=== PATIENT | female | born 1995 | race Two or more races ===

== ENCOUNTER 2017-08-11 21:48 | Emergency (ER) | payer MEDICAID ==
[~2017-08-11] VITALS: Ht 160 cm; Wt 47.0 kg
[2017-08-11 22:52] LABS: CLARITY URINE TURBID (CLEAR); COLOR URINE YELLOW (YELLOW); KETONES URINE 2+ (NEGATIVE); LEUKOCYTE ESTERASE URINE 2+ (NEGATIVE); NITRITE URINE NEGATIVE (NEGATIVE); OCCULT BLOOD URINE NEGATIVE (NEGATIVE); PH URINE 5.5 (4.5-8.0); PROTEIN URINE NEGATIVE (NEGATIVE); SPECIFIC GRAVITY URINE 1.032 (1.005-1.030)
[2017-08-12] MEDS ORDERED: ACETAMINOPHEN 325MG TABLET PO ONE (02:00)
[2017-08-12] MEDS ORDERED: ONDANSETRON 4MG ODT PO ONE (02:00)
[2017-08-12 02:15] LABS: BASOPHILS % 0.3 % (0.0-2.0); EOSINOPHILS % 0.2 % (0.0-5.0); HEMOGLOBIN. 12.8 g/dL (12.0-16.0); LYMPHOCYTES % 29.4 % (20.0-50.0); MEAN CORPUSCULAR HEMOGLOBIN 30.6 pg (28.0-32.0); MEAN CORPUSCULAR VOLUME 90.7 fL (81.0-99.0); MONOCYTES % 6.8 % (2.0-8.0); NEUTROPHILS % 63.3 % (40.0-76.0); PLATELET 222 x1000/uL (130-400); RED BLOOD CELL COUNT 4.19 mill/uL (4.2-5.4); RED CELL DISTRIBUTION WIDTH 12.8 % (11.6-14.6)
[2017-08-12 02:19] LABS: CHLORIDE 104 mEq/L (98-107)
[2017-08-12 02:24] LABS: INR 1.1; PROTHROMBIN TIME 11.6 sec (9.4-11.6)
[2017-08-12 02:29] LABS: HCG SCREEN NEGATIVE
[2017-08-12] MEDS ORDERED: NITROFURANTOIN 100MG M/M CAPSULE PO ONE (02:45)
[2017-08-12 03:24] VITALS: BP 101/38
== END 2017-08-12 04:22 | disposition home or self-care (01) ==
LOC: ER 21:48
DX: N83.202 Unspecified ovarian cyst, left side (principal); N39.0 Urinary tract infection, site not specified; F12.10 Cannabis abuse, uncomplicated; Z88.1 Allergy status to other antibiotic agents
CPT/HCPCS: 36415; 76830; 76856; 80053; 81003; 83690; 84703; 85025; 85610; 99285; Q0162; Z7610

== ENCOUNTER 2017-10-09 23:09 | Emergency (ER) | payer MEDICAID ==
[~2017-10-09] VITALS: Ht 157.5 cm; Wt 51.0 kg
[2017-10-10 01:34] LABS: CLARITY URINE CLEAR (CLEAR); COLOR URINE YELLOW (YELLOW); KETONES URINE TRACE (NEGATIVE); LEUKOCYTE ESTERASE URINE NEGATIVE (NEGATIVE); NITRITE URINE NEGATIVE (NEGATIVE); OCCULT BLOOD URINE NEGATIVE (NEGATIVE); PH URINE 6.5 (4.5-8.0); PROTEIN URINE NEGATIVE (NEGATIVE); SPECIFIC GRAVITY URINE 1.016 (1.005-1.030)
[2017-10-10] MEDS ORDERED: IBUPROFEN 800MG TABLET PO ONE (04:45)
[2017-10-10] MEDS ORDERED: ACETAMINOPHEN WITH CODEINE 300/30MG TABLET PO ONE (05:15)
[2017-10-10 05:55] VITALS: BP 112/62
== END 2017-10-10 06:15 | disposition home or self-care (01) ==
LOC: ER 23:09
DX: N76.0 Acute vaginitis (principal); J45.909 Unspecified asthma, uncomplicated; Z88.3 Allergy status to other anti-infective agents
CPT/HCPCS: 81003; 81025; 99283; Z7610

== ENCOUNTER 2017-11-15 21:42 | Emergency (ER) | payer MEDICAID ==
[~2017-11-15] VITALS: Ht 160 cm; Wt 47.0 kg
[2017-11-15 22:18] VITALS: BP 100/61
== END 2017-11-16 00:27 | disposition left against medical advice (07) ==
LOC: ER 21:42
DX: Z53.21 Procedure and treatment not carried out due to patient leaving prior to being seen by health care provider (principal)

== ENCOUNTER 2017-11-16 15:00 | Emergency (ER) | payer MEDICAID ==
[~2017-11-16] VITALS: Ht 160 cm; Wt 47.0 kg
[2017-11-16 17:20] LABS: CLARITY URINE CLEAR (CLEAR); COLOR URINE YELLOW (YELLOW); KETONES URINE TRACE (NEGATIVE); LEUKOCYTE ESTERASE URINE NEGATIVE (NEGATIVE); NITRITE URINE NEGATIVE (NEGATIVE); OCCULT BLOOD URINE NEGATIVE (NEGATIVE); PROTEIN URINE NEGATIVE (NEGATIVE); SPECIFIC GRAVITY URINE 1.019 (1.005-1.030); UROBILINOGEN URINE 0.2 E.U./dL (0.2-1.0)
[2017-11-16] MEDS ORDERED: IBUPROFEN 600MG TABLET PO ONE (20:00)
[2017-11-16 23:28] VITALS: BP 100/60
== END 2017-11-16 23:30 | disposition home or self-care (01) ==
LOC: ER 15:00
DX: R10.2 Pelvic and perineal pain (principal); R03.0 Elevated blood-pressure reading, without diagnosis of hypertension; N83.202 Unspecified ovarian cyst, left side
CPT/HCPCS: 76830; 76856; 81003; 81025; 99285; Z7610; C1893

== ENCOUNTER 2018-06-02 13:25 | Observation (INO) | payer MEDICAID ==
[~2018-06-02] VITALS: Ht 157.5 cm; Wt 52.2 kg
[2018-06-02 14:33] LABS: CLARITY URINE CLEAR (CLEAR); COLOR URINE YELLOW (YELLOW); KETONES URINE NEGATIVE (NEGATIVE); LEUKOCYTE ESTERASE URINE NEGATIVE (NEGATIVE); NITRITE URINE NEGATIVE (NEGATIVE); OCCULT BLOOD URINE NEGATIVE (NEGATIVE); PH URINE 7.5 (4.5-8.0); PROTEIN URINE NEGATIVE (NEGATIVE); SPECIFIC GRAVITY URINE 1.016 (1.005-1.030); UROBILINOGEN URINE 0.2 E.U./dL (0.2-1.0)
[2018-06-02] MEDS: LACTATED RINGERS 1,000 ML IV SCH (14:35)
== END 2018-06-02 15:35 | disposition home or self-care (01) ==
LOC: 8 EST LDRP 13:25
PROVIDERS: ADMIT Specialist; ATTEND Specialist
DX: O26.892 Other specified pregnancy related conditions, second trimester (principal); R10.30 Lower abdominal pain, unspecified; Z3A.24 24 weeks gestation of pregnancy
CPT/HCPCS: 81003; 99281; G0378; 96360

== ENCOUNTER 2018-09-13 14:05 | Observation (INO) | payer MEDICAID ==
[~2018-09-13] VITALS: Ht 162.6 cm; Wt 59.0 kg
[2018-09-13 16:10] LABS: CLARITY URINE CLEAR (CLEAR); COLOR URINE YELLOW (YELLOW); KETONES URINE NEGATIVE (NEGATIVE); LEUKOCYTE ESTERASE URINE NEGATIVE (NEGATIVE); NITRITE URINE NEGATIVE (NEGATIVE); OCCULT BLOOD URINE NEGATIVE (NEGATIVE); PH URINE 6.5 (4.5-8.0); PROTEIN URINE NEGATIVE (NEGATIVE); SPECIFIC GRAVITY URINE 1.009 (1.005-1.030); UROBILINOGEN URINE 0.2 E.U./dL (0.2-1.0)
== END 2018-09-13 16:50 | disposition home or self-care (01) ==
LOC: 8 EST LDRP 14:05
PROVIDERS: ADMIT Obstetrics & Gynecology; ATTEND Obstetrics & Gynecology
DX: O36.8130 Decreased fetal movements, third trimester, not applicable or unspecified (principal); O26.893 Other specified pregnancy related conditions, third trimester; R10.9 Unspecified abdominal pain; N89.8 Other specified noninflammatory disorders of vagina; O99.89 Other specified diseases and conditions complicating pregnancy, childbirth and the puerperium; M54.9 Dorsalgia, unspecified; Z3A.38 38 weeks gestation of pregnancy
CPT/HCPCS: 76815; 76818; 81003; G0378

== ENCOUNTER 2018-09-15 05:02 | Inpatient (IN) | payer MEDICAID ==
[~2018-09-15] VITALS: Ht 162.6 cm; Wt 62.6 kg
[2018-09-15] MEDS ORDERED: FERR-71 MT (05:52)
[2018-09-15] MEDS ORDERED: PREN1TAB78 MT (05:52)
[2018-09-15] MEDS ORDERED: DEXT 5%/LACTATED RINGERS 1,000 ML IV SCH (07:00)
[2018-09-15] MEDS ORDERED: DEXT 5%/LR + PITOCIN 20UNITS/L 1,000 ML IV SCH ×2 (07:10→12:27)
[2018-09-15] MEDS ORDERED: METHYLERGONOVINE MALEATE 0.2 MG/ML IM PRN (07:15)
[2018-09-15] MEDS ORDERED: NALOXONE HCL 0.4 MG/ML 1ML VIAL IM PRN (07:15)
[2018-09-15] MEDS ORDERED: LIDOCAINE HCL 1% 20ML VIAL (Pyxis) INJ INFIL SCH (07:15)
[2018-09-15 07:23] LABS: INR 0.9; PARTIAL THROMBOPLASTIN TIME 27.6 sec (23.4-31.0)
[2018-09-15 07:24] LABS: BASOPHILS % 0.2 % (0.0-2.0); EOSINOPHILS % 0.3 % (0.0-5.0); HEMATOCRIT. 33.5 % (36.0-48.0); HEMOGLOBIN. 11.5 g/dL (12.0-16.0); LYMPHOCYTES % 15.5 % (20.0-50.0); MEAN CORPUSCULAR VOLUME 90.7 fL (81.0-99.0); MEAN PLATELET VOLUME 10.5 fl (7.4-10.4); MONOCYTES % 9.7 % (2.0-8.0); NEUTROPHILS % 74.3 % (40.0-76.0); PLATELET 211 x1000/uL (130-400); RED CELL DISTRIBUTION WIDTH 14.8 % (11.6-14.6)
[2018-09-15] MEDS: BUTORPHANOL TARTRATE 2 MG/ML VIAL IV PRN ×2 (07:25→09:59)
[2018-09-15] MEDS: LACTATED RINGERS 1,000 ML IV SCH ×2 (07:26→07:35)
[2018-09-15 07:30] LABS: CLARITY URINE CLOUDY (CLEAR); COLOR URINE YELLOW (YELLOW); KETONES URINE NEGATIVE (NEGATIVE); LEUKOCYTE ESTERASE URINE 2+ (NEGATIVE); NITRITE URINE NEGATIVE (NEGATIVE); OCCULT BLOOD URINE 2+ (NEGATIVE); PH URINE 5.5 (4.5-8.0); PROTEIN URINE NEGATIVE (NEGATIVE); SPECIFIC GRAVITY URINE 1.007 (1.005-1.030); UROBILINOGEN URINE 0.2 E.U./dL (0.2-1.0)
[2018-09-15 08:39] LABS: *AMPHETAMINES SCREEN URINE NEGATIVE (NEGATIVE)
[2018-09-15 08:40] LABS: *BARBITURATES SCREEN URINE NEGATIVE (NEGATIVE); *BENZODIAZEPINES SCREEN URINE NEGATIVE (NEGATIVE); *COCAINE SCREEN URINE NEGATIVE (NEGATIVE); CANNABINOID URINE SCREEN NEGATIVE (NEGATIVE); METHADONE URINE SCREEN NEGATIVE (NEGATIVE); OPIATES URINE SCREEN NEGATIVE (NEGATIVE)
[2018-09-15 08:41] LABS: PHENCYCLIDINE URINE SCREEN NEGATIVE (NEGATIVE)
[2018-09-15 10:37] LABS: PROTHROMBIN TIME < 9.0 sec (9.6-11.0)
[2018-09-15] MEDS ORDERED: LANOLIN OINT 7GM TUBE TOP PRN (12:30)
[2018-09-15] MEDS ORDERED: RHO(D) IMMUNE GLOBULIN 300 MCG/SYR IM PRN (12:30)
[2018-09-15] MEDS ORDERED: IBUPROFEN 400MG TABLET PO PRN (12:30)
[2018-09-15] MEDS ORDERED: IBUPROFEN 800MG TABLET PO PRN (12:30)
[2018-09-15 13:00] VITALS: BP 127/55
[2018-09-15] MEDS ORDERED: LACTATED RINGERS 1,000 ML IV SCH (13:30)
[2018-09-15 14:40] VITALS: BP 127/77
[2018-09-15 17:40] VITALS: BP 116/69
[2018-09-15 22:00] VITALS: BP 115/68
[2018-09-16 06:00] VITALS: BP 118/70
[2018-09-16 06:25] LABS: BASOPHILS % 0.2 % (0.0-2.0); EOSINOPHILS % 0.1 % (0.0-5.0); HEMATOCRIT. 29.2 % (36.0-48.0); LYMPHOCYTES % 20.7 % (20.0-50.0); MEAN CORPUSCULAR HEMOGLOBIN 31.3 pg (28.0-32.0); MEAN CORPUSCULAR VOLUME 91.4 fL (81.0-99.0); MEAN PLATELET VOLUME 10.7 fl (7.4-10.4); MONOCYTES % 8.3 % (2.0-8.0); NEUTROPHILS % 70.7 % (40.0-76.0); PLATELET 171 x1000/uL (130-400); RED BLOOD CELL COUNT 3.19 mill/uL (4.2-5.4); RED CELL DISTRIBUTION WIDTH 14.8 % (11.6-14.6)
[2018-09-16 08:00] VITALS: BP 113/59
[2018-09-16] MEDS: PRENATAL VIT/FE FUMARATE/FA TABLET PO SCH (09:00)
[2018-09-16 16:00] VITALS: BP 113/58
[2018-09-16 22:00] VITALS: BP 113/74
[2018-09-17] MEDS: PRENATAL VIT/FE FUMARATE/FA TABLET PO SCH (08:55)
== END 2018-09-17 13:39 | disposition home or self-care (01) | DRG 560 ==
LOC: 8 EST LDRP 05:02 → OBSVTOIN 05:02 → 8EST 14:03
PROVIDERS: ADMIT Obstetrics & Gynecology; ATTEND Obstetrics & Gynecology
PROC: 10E0XZZ Delivery of Products of Conception, External Approach (ICD-10-PCS; principal; 2018-09-15)
PROC: 0HQ9XZZ Repair Perineum Skin, External Approach (ICD-10-PCS; 2018-09-15)
DX: O99.03 Anemia complicating the puerperium (principal); D62 Acute posthemorrhagic anemia; O70.0 First degree perineal laceration during delivery; Z37.0 Single live birth; Z3A.39 39 weeks gestation of pregnancy; Z79.899 Other long term (current) drug therapy; Z88.8 Allergy status to other drugs, medicaments and biological substances; Z91.018 Allergy to other foods
CPT/HCPCS: 36415; 80305; 86592; 86703; 86762; 86850; 86900; 87340; 99281; J0595; J2590; J7120; J7121